=== PATIENT | female | born 1985 | race Caucasian/White ===

== ENCOUNTER 2022-01-27 15:26 | Emergency (ER) | payer OTHER ==
[~2022-01-27 15:26] MED LIST: BACLOFEN 10MG T10 MG PO; FIORICET1 EACH PO; NAPROXEN500 MG PO; VOLTAREN **OUT75 MG PO; ZOFRAN4 MG SL
[2022-01-27 16:22] LABS: BASOPHIL 0.7 % (0-2); EOSINOPHIL 2.2 % (0-5); HCT 39.6 % (37.0-47.0); HGB 13.2 g/dl (12.5-16.0); LYMPHOCYTE 28.5 % (15-48); MCH 29.9 pg (25.0-31.0); MCHC 33.3 g/dL (32.0-36.0); MCV 89.6 fL (78.0-100.0); MONOCYTE 7.3 % (0-12); MPV 10.3 fL (6.0-9.5); NEUTROPHIL 61.1 % (41-80); NRBC 0; PLT 291 K/uL (150-400); RBC 4.42 M/uL (4.20-5.40); RDW 12.9 % (11.5-14.0); WBC 8.7 K/uL (4.0-10.5)
[2022-01-27 17:40] LABS: BUN 11 mg/dL (7-18); BUN/CREAT RATIO (CALC) 15.3 RATIO; C-REACTIVE PROTEIN <0.20 mg/dL (<=0.90); CHLORIDE 101 mmol/L (98-107); CO2 (BICARBONATE) 27 mmol/L (21-32); CREATININE 0.72 mg/dL (0.51-0.95); GLUCOSE 87 mg/dL (74-106); POTASSIUM 3.9 mmol/L (3.5-5.1)
[2022-01-27] MEDS ORDERED: IBUPROFEN800 MG PO (18:30)
== END 2022-01-27 19:31 | disposition home or self-care (01) ==
LOC: FER 15:26
PROVIDERS: Emergency Medicine
DX: R07.89 Other chest pain (principal); Z88.1 Allergy status to other antibiotic agents
CPT/HCPCS: 36415; 71275; 80048; 84484; 85025; 86140; 93005; Q9967